=== PATIENT | male | born 1965 | race Caucasian/White ===

== ENCOUNTER 2022-01-13 09:36 | Emergency (ER) | payer OTHER ==
[2022-01-13 10:16] LABS: ANION GAP 14.1 mmol/L (5-15); CHLORIDE,CL 94 mmol/L (98-107); ESTIMATED GFR 79 mL/min (>=60); SODIUM,NA 133 mmol/L (136-145)
[2022-01-13] MEDS: Iopamidol 612 MG/ML 100 ML Bottle IVPUSH ONE (11:34)
[2022-01-13] MEDS: HYDROmorphone 0.5 MG/0.5 ML Syringe IVPUSH ONE ×2 (12:21→14:20)
[2022-01-13] MEDS: Sodium Chloride 0.9% 1,000 ML IV SCH (12:22)
[2022-01-13] MEDS: cefTRIAXone 1 GM Vial IVPUSH ONE (14:20)
== END 2022-01-13 14:10 | disposition short-term general hospital (02) ==
LOC: VM.ED 09:36
DX: K56.609 Unspecified intestinal obstruction, unspecified as to partial versus complete obstruction (principal); K56.1 Intussusception; I10 Essential (primary) hypertension; Z20.822 Contact with and (suspected) exposure to COVID-19; Z87.891 Personal history of nicotine dependence
CPT/HCPCS: 36415; 74019; 74177; 80053; 82150; 83690; 85025; 86140; 96361; 96374; 96375; 96376; 99284; 99285-25; J0696; J1170; J7030; Q9967; U0002

== ENCOUNTER 2024-12-02 13:46 | Emergency (ER) | payer BC, OTHER ==
[2024-12-02] MEDS ORDERED: Sodium Chloride 0.9% 10 ML Syringe FLUSH PRN (14:09)
[2024-12-02] MEDS: Lactated Ringers 1,000 ML IV ONE ×2 (14:21→15:35)
[2024-12-02 14:35] LABS: BASOPHILS ABSOLUTE AUTO 0.1 x10^3/uL (0.0-0.2); BASOPHILS PERCENT AUTO 0.5 % (0.2-1.2); EOSINOPHILS ABSOLUTE AUTO 0.0 x10^3/uL (0.0-0.5); EOSINOPHILS PERCENT AUTO 0.4 % (0.0-4.0); IMMATURE GRAN ABSOLUTE AUTO 0.03 x10^3/uL (0.00-0.07); IMMATURE GRAN PERCENT AUTO 0.30 % (0.00-0.43); LYMPHOCYTES ABSOLUTE AUTO 0.9 x10^3/uL (1.0-4.8); LYMPHOCYTES PERCENT AUTO 8.4 % (25.0-50.0); MONOCYTES ABSOLUTE AUTO 0.8 x10^3/uL (0.0-0.8); MONOCYTES PERCENT AUTO 7.5 % (2.0-11.0); NEUTROPHILS ABSOLUTE AUTO 8.8 x10^3/uL (1.8-7.7); NEUTROPHILS PERCENT AUTO 82.9 % (50.0-80.0); PLATELET COUNT,PLT 215 x10^3/uL (130-400); RED BLOOD CELL COUNT 5.15 x10^6/uL (4.5-6.0); WHITE BLOOD CELL COUNT,WBC 10.6 x10^3/uL (4.0-10.0)
[2024-12-02 14:47] LABS: A/G RATIO 1.08; ALANINE AMINOTRANSFERASE,ALT 39.0 U/L (16-63); ASPARTATE AMNIOTRANSFERASE,AST 28.0 U/L (15-37); BILIRUBIN TOTAL 1.6 mg/dL (0.2-1.0); BLOOD UREA NITROGEN,BUN 27.0 mg/dL (7-18); CARBON DIOXIDE,CO2 25.0 mmol/L (21-32); CHLORIDE,CL 97.0 mmol/L (98-107); CREATINE KINASE,CK 69.0 U/L (39-308); CREATININE 2.1 mg/dL (0.70-1.30); EST CRCL DRUG DOSING (CG) 42.08 mL/min; GLUCOSE RANDOM 112.0 mg/dL (70-99); POTASSIUM,K 4.1 mmol/L (3.5-5.1); PROTEIN TOTAL,TP 7.7 g/dL (6.4-8.2); SODIUM,NA 137.0 mmol/L (136-145)
[2024-12-02 14:48] LABS: ESTIMATED GFR 36.0 mL/min (>=60)
[2024-12-02 16:04] LABS: CREATININE 2.1 mg/dL (0.70-1.30); EST CRCL DRUG DOSING (CG) 42.08 mL/min
[2024-12-02 16:05] LABS: ESTIMATED GFR 36.0 mL/min (>=60)
== END 2024-12-02 16:45 | disposition home or self-care (01) ==
LOC: VM.ED 13:46
DX: I48.20 Chronic atrial fibrillation, unspecified (principal); E86.0 Dehydration; R79.89 Other specified abnormal findings of blood chemistry; I10 Essential (primary) hypertension; E78.00 Pure hypercholesterolemia, unspecified; Z79.899 Other long term (current) drug therapy
CPT/HCPCS: 36415; 80053; 82550; 82565; 83735; 83880; 84484; 85025; 85379; 93005; 93010; 96360; 96361; 99284; 99285-25; A9270-GY; J7120